=== PATIENT | male | born 1940 | race Caucasian/White ===

== ENCOUNTER 2021-11-24 11:17 | Day surgery (SDC) | payer OTHER ==
[2021-11-19 10:38] LABS: APTT 29 SECONDS (22-32)
[2021-11-19 10:42] LABS: BASOPHILS % (AUTO) 0.4 % (0-1); EOSINOPHILS # (AUTO) 0.1 X10'3 (0-0.9); EOSINOPHILS % (AUTO) 0.7 % (0-6); HEMATOCRIT 43.6 % (42.0-52.0); LYMPHOCYTES # (AUTO) 3.9 X10'3 (1.1-4.8); LYMPHOCYTES % (AUTO) 32.8 % (21-51); MEAN CORPUSCULAR HEMOGLOBIN 27.7 PG (27.0-31.0); MEAN CORPUSCULAR HGB CONC 32.2 g/dL (33.0-36.5); MEAN CORPUSCULAR VOLUME 86.3 FL (78-98); MEAN PLATELET VOLUME 10.3 FL (7.4-10.4); MONOCYTES # (AUTO) 1.1 X10'3 (0-0.9); NEUTROPHILS # (AUTO) 6.8 X10'3 (1.8-7.7); NEUTROPHILS % (AUTO) 57.1 % (42-75); PLATELET COUNT 137 X10'3 (140-440); RED BLOOD COUNT 5.05 X10'6 (4.70-6.10); RED CELL DISTRIBUTION WIDTH 15.7 % (11.5-14.5); WHITE BLOOD COUNT 11.9 X10'3 (4.5-11.0)
[2021-11-19 10:46] LABS: ALBUMIN 3.5 G/DL (3.4-5.0); ANION GAP 4 (8-16); BLOOD UREA NITROGEN 8 MG/DL (7-18); BUN/CREATININE RATIO 9.4 (5.4-32.0); CALCIUM 8.5 MG/DL (8.5-10.1); CHLORIDE 105 MMOL/L (99-107); CHOL/HDL RATIO 3.7 (0.00-4.99); CHOLESTEROL 132 MG/DL (0-200); CREATININE 0.85 MG/DL (0.60-1.10); GLUCOSE 91 MG/DL (70-104); HDL CHOLESTEROL 36 MG/DL (35-60); LDL CHOLESTEROL 81 MG/DL (50-100); POTASSIUM 4.1 MMOL/L (3.5-5.1); SODIUM 141 MMOL/L (135-145); TOTAL CARBON DIOXIDE 31.6 MMOL/L (24-32); TRIGLYCERIDES 100 MG/DL (20-135); eGFR 87 ML/MIN
[~2021-11-24] VITALS: Ht 170.2 cm; Wt 94.8 kg
[2021-11-24] VITALS (9 sets, daily range): BP systolic 111–127; BP diastolic 62–80
[2021-11-24] MEDS ORDERED: diphenhydrAMINE 25mg capsule PO PRN (11:35)
[2021-11-24] MEDS ORDERED: LORazepam 0.5 MG tablet PO PRN (11:35)
[2021-11-24] MEDS ORDERED: normal saline 1,000 ML IV SCH (11:35)
[2021-11-24] MEDS ORDERED: CETI10TA14 PO (12:37)
[2021-11-24] MEDS ORDERED: FLO0.4C PO (12:37)
[2021-11-24] MEDS ORDERED: MONT-40 PO (12:37)
[2021-11-24] MEDS ORDERED: METF-438 PO (12:37)
[2021-11-24] MEDS ORDERED: FLUT16SP (12:37)
[2021-11-24] MEDS ORDERED: SACU1TAB PO (12:37)
[2021-11-24] MEDS ORDERED: ATOR20TA66 PO (12:37)
[2021-11-24] MEDS ORDERED: INSU100I71 (12:37)
[2021-11-24] MEDS ORDERED: EMPA25TA PO (12:37)
[2021-11-24] MEDS ORDERED: DEXT15DR28 (12:37)
[2021-11-24] MEDS ORDERED: heparin 1,000unit/ml 10ml vial 10 ML ONE (12:38)
[2021-11-24] MEDS ORDERED: nitroGLYCERIN-Tridil 50MG/D5W 250 ML IV ONE (12:38)
[2021-11-24] MEDS ORDERED: verapamil 2.5 mg/ml inj IV ONE (12:38)
[2021-11-24] MEDS ORDERED: midazolam 1 mg/ML 2ml injection ONE ×2 (12:38→13:51)
[2021-11-24] MEDS ORDERED: iohexol 350MG/ML 100ml bottle IV ONE ×2 (12:38→14:05)
[2021-11-24] MEDS ORDERED: LIDOcaine 1% 30ml preserv. free vial ONE (12:38)
[2021-11-24] MEDS ORDERED: fentaNYL/PF 50MCG/1 ML 2ML syringe ONE (12:38)
[2021-11-24] MEDS ORDERED: HYDROcodone/acetaminophen 10/325mg tab PO PRN (14:40)
[2021-11-24] MEDS ORDERED: HYDROcodone/acetaminophen 5mg/325mg tablet PO PRN (14:40)
--- NOTE | 2021-11-24 17:00 | NUR ---
Written and verbal DC instructions given to pt and , both verbalize understanding. VSS, PIV DC cath intact. Dressing to right radial site stable, no bleeding, bruising or hematoma noted. Pt able toget dressed with assist. DC to home with , transferred toprivate car via WC, pt able to transfer self to car, gait steady.
[2021-11-25 06:19] LABS: ISTAT Hct MIX 39 %PCV (42-52); ISTAT O2 SATURATION MIX VENOUS 64 % (60-80); ISTAT SOURCE BLNK
[2021-11-25 06:19] LABS: ISTAT Hct MIX 40 %PCV (42-52); ISTAT O2 SATURATION MIX VENOUS 91 % (60-80); ISTAT SOURCE BLNK
== END 2021-11-24 17:00 | disposition home or self-care (01) ==
LOC: SSTAY O 11:17
PROVIDERS: ATTEND Student in an Organized Health Care Education/Training Program
DX: I35.0 Nonrheumatic aortic (valve) stenosis (principal); I48.91 Unspecified atrial fibrillation; E11.9 Type 2 diabetes mellitus without complications; I10 Essential (primary) hypertension; I42.9 Cardiomyopathy, unspecified; Z79.899 Other long term (current) drug therapy; Z98.890 Other specified postprocedural states
CPT/HCPCS: 36415; 80048; 80061; 82803; 85014; 85025; 85610; 85730; 93005; 93456; 99152; 99153; C1769; C1894; J1644; J2250; J3010; J3490; J7030; Q0163; Q9967; A4620; A6258; A6402

== ENCOUNTER 2021-12-29 02:25 | Emergency (ER) | payer OTHER, MEDICARE ==
[~2021-12-29] VITALS: Ht 175.3 cm; Wt 113.6 kg
[~2021-12-29 02:25] MED LIST: ATOR20TA66 PO; CETI10TA14 PO; DEXT15DR28; EMPA25TA PO; FLO0.4C PO; FLUT16SP; INSU100I71; METF-438 PO; MONT-40 PO; SACU1TAB PO
[2021-12-29] MEDS ORDERED: dextrose 50%-water 50ml dispensing syringe IV ONE (02:53)
[2021-12-29] MEDS ORDERED: epiNEPHrine 0.1mg/ml 10ml syringe ONE ×2 (03:00→03:30)
[2021-12-29] MEDS ORDERED: sodium bicarbonate (8.4%) 1 mEq/ml syringe ONE ×2 (03:00→03:30)
[2021-12-29] MEDS ORDERED: 0.9 % SODIUM CHLORIDE 10 ML VIAL ONE (03:30)
[2021-12-29] MEDS ORDERED: calcium chloride 100 MG/1 ML inj IV ONE (03:30)
== END 2021-12-29 06:41 ==
LOC: ER 02:25
DX: I46.9 Cardiac arrest, cause unspecified (principal); I10 Essential (primary) hypertension
CPT/HCPCS: 82948; 92950; 99291; J0171; J3490